=== PATIENT | female | born 1940 | race Caucasian/White ===

== ENCOUNTER 2024-03-23 13:49 | Inpatient (IN) | payer MEDICARE, OTHER ==
[~2024-03-23] VITALS: Ht 154.9 cm; Wt 64.9 kg
[2024-03-23] MEDS ORDERED: methylPREDNISolone SOD SUCC 125 MG/2ML VIAL ONE ×2 (14:11→22:00)
[2024-03-23] MEDS: methylPREDNISolone SOD SUCC 125 MG/2ML VIAL IV ONE (14:15)
[2024-03-23 14:44] VITALS: O2SAT 99
[2024-03-23] MEDS: IPRATROPIUM NEB FS 0.5 MG/2.5 ML AMPUL.NEB NEB ONE (14:44)
[2024-03-23] MEDS: ALBUTEROL FS 2.5 MG/3 ML VIAL.NEB CONTNEB ONE (14:44)
[2024-03-23 14:49] LABS: BASOPHILS % (AUTO) 0.8 % (0.0-2.0); EOSINOPHILS # (AUTO) 0.3 K/uL (0.0-0.7); EOSINOPHILS % (AUTO) 5.7 % (0.0-6.0); HEMATOCRIT 36 % (33-45); HEMOGLOBIN 11.7 g/dL (11.5-14.8); LYMPHOCYTES # (AUTO) 0.9 K/uL (0.8-4.8); LYMPHOCYTES % (AUTO) 18.5 % (20.0-44.0); MEAN CORPUSCULAR HEMOGLOBIN 29 PG (26.0-33.0); MEAN CORPUSCULAR HGB CONC 32 g/dl (31.0-36.0); MEAN CORPUSCULAR VOLUME 90 fL (82-100); MONOCYTES # (AUTO) 0.3 K/uL (0.1-1.30); NEUTROPHILS # (AUTO) 3.5 K/uL (1.8-8.9); PLATELET COUNT (AUTO) 220 K/uL (150-450); RED BLOOD CELL COUNT(AUTO) 4.05 MIL/uL (4.0-5.2)
[2024-03-23] MEDS ORDERED: ALBUTEROL FS 2.5 MG/3 ML VIAL.NEB ONE (14:50)
[2024-03-23] MEDS ORDERED: IPRATROPIUM NEB FS 0.5 MG/2.5 ML AMPUL.NEB ONE (14:51)
[2024-03-23] MEDS ORDERED: diphenhydrAMINE HCL 50 MG/ML VIAL ONE (15:00)
[2024-03-23] MEDS: diphenhydrAMINE HCL 50 MG/ML VIAL IV ONE (15:06)
[2024-03-23 15:12] LABS: CALCIUM, SERUM 8.3 mg/dL (8.5-10.1); CREATININE 0.7 mg/dL (0.6-1.3)
[2024-03-23 15:19] LABS: ALBUMIN 3.7 g/dL (3.4-5.0); BILIRUBIN,DIRECT 0.2 mg/dL (0.0-0.2); BILIRUBIN,TOTAL 0.5 mg/dL (0.2-1.0); TOTAL PROTEIN, SERUM 8.5 g/dL (6.4-8.2)
[2024-03-23 15:43] VITALS: O2SAT 100; O2SAT 99
[2024-03-23 16:37] LABS: NT-PRO BNP 813 pg/mL (0-125)
[2024-03-23] MEDS ORDERED: Z GUARD REMEDY 4 OZ OINT TP PRN (18:00)
[2024-03-23] MEDS ORDERED: ONDANSETRON HCL/PF 4 MG/2 ML VIAL IVP PRN (18:00)
[2024-03-23] MEDS ORDERED: ZOLPIDEM TARTRATE 5 MG TABLET PO PRN (18:00)
[2024-03-23] MEDS ORDERED: MAGNESIUM HYDROXIDE 30 ML UDC PO PRN (18:00)
[2024-03-23] MEDS ORDERED: ACETAMINOPHEN 325 MG TABLET PO PRN (18:00)
[2024-03-23] MEDS ORDERED: MAG HYDROX/AL HYDROX/SIMETH 30 ML UDC PO PRN (18:00)
[2024-03-23] MEDS ORDERED: ALBU18HF2 IH (18:30)
[2024-03-23] MEDS ORDERED: LEVOFLOXACIN (250MG) 250 MG TABLET ONE (20:59)
[2024-03-23] MEDS: LEVOFLOXACIN (250MG) 250 MG TABLET PO SCH (21:01)
[2024-03-23] MEDS: methylPREDNISolone SOD SUCC 40 MG/ML VIAL IV SCH (22:09)
[2024-03-23 22:56] VITALS: BP 133/88; TEMP 97.7; O2SAT 98
[2024-03-23 23:50] VITALS: BP 133/88; TEMP 97.7; O2SAT 99
[2024-03-24] VITALS (8 sets, daily range): BP systolic 141–160; BP diastolic 70–82; TEMP 97.7–97.9; O2SAT 92–100
[2024-03-24] MEDS: HYDROCODONE/APAP 5/325MG TABLET PO PRN (00:14)
[2024-03-24] MEDS: IPRATROPIUM NEB FS 0.5 MG/2.5 ML AMPUL.NEB NEB PRN (02:27)
[2024-03-24] MEDS: ALBUTEROL FS 2.5 MG/0.5 ML VIAL.NEB NEB PRN (02:27)
[2024-03-24 07:26] LABS: BASOPHILS % (AUTO) 0.1 % (0.0-2.0); HEMATOCRIT 32 % (33-45); HEMOGLOBIN 10.5 g/dL (11.5-14.8); LYMPHOCYTES # (AUTO) 0.2 K/uL (0.8-4.8); LYMPHOCYTES % (AUTO) 7.9 % (20.0-44.0); MEAN CORPUSCULAR HEMOGLOBIN 29 PG (26.0-33.0); MEAN CORPUSCULAR HGB CONC 33 g/dl (31.0-36.0); MEAN CORPUSCULAR VOLUME 89 fL (82-100); MONOCYTES % (AUTO) 1.3 % (2.0-12.0); NEUTROPHILS # (AUTO) 2.7 K/uL (1.8-8.9); NEUTROPHILS % (AUTO) 90.7 % (43.0-81.0); PLATELET COUNT (AUTO) 183 K/uL (150-450); RED BLOOD CELL COUNT(AUTO) 3.59 MIL/uL (4.0-5.2); RED CELL DISTRIBUTION WIDTH 14.5 % (11.5-15.0)
[2024-03-24 07:42] LABS: THYROID STIMULATING HORMONE 0.8 uIU/mL (0.358-3.74)
[2024-03-24 08:31] LABS: CALCIUM, SERUM 8.4 mg/dL (8.5-10.1); CREATININE 0.8 mg/dL (0.6-1.3); MAGNESIUM 2.3 mg/dL (1.8-2.4); PHOSPHORUS 3.9 mg/dL (2.5-4.9); POTASSIUM 4.2 mmol/L (3.5-5.1)
[2024-03-24] MEDS: ENOXAPARIN SODIUM 40 MG/0.4 ML DISP.SYRIN SQ SCH (08:45)
[2024-03-24] MEDS: PANTOPRAZOLE 40 MG TABLET.DR PO SCH (08:45)
[2024-03-24] MEDS: THERAHONEY GEL 1.5 OZ TUBE TP SCH (13:33)
[2024-03-24] MEDS: IPRATROPIUM NEB FS 0.5 MG/2.5 ML AMPUL.NEB NEB SCH (14:32)
[2024-03-24] MEDS: ALBUTEROL FS 2.5 MG/0.5 ML VIAL.NEB NEB SCH (14:33)
[2024-03-25] VITALS (11 sets, daily range): BP systolic 124–148; BP diastolic 70–83; TEMP 97.5–98.2; O2SAT 93–99
[2024-03-25] MEDS: methylPREDNISolone SOD SUCC 40 MG/ML VIAL IV SCH (09:14)
[2024-03-25] MEDS: LIDOCAINE 2%-EPI 1:100,000 30 ML VIAL TP ONE (13:46)
[2024-03-25] MEDS: FLUTICASONE PROPIONATE 16 GM BOTTLE NS SCH (17:34)
[2024-03-26 01:21] VITALS: O2SAT 94
[2024-03-26 01:35] VITALS: O2SAT 99
[2024-03-26 08:00] VITALS: BP 134/81; TEMP 97.8; O2SAT 96
[2024-03-26 08:01] VITALS: O2SAT 96
[2024-03-26 08:16] VITALS: O2SAT 99
== END 2024-03-26 13:00 | disposition home or self-care (01) | DRG 202 ==
LOC: ER 13:55 → MEDSG1 19:35 → MED 19:37 → MEDSG1 19:38 → MED 20:58
PROVIDERS: ADMIT Nurse Practitioner Acute Care; ATTEND Nurse Practitioner Acute Care
DX: J45.901 Unspecified asthma with (acute) exacerbation (principal); T81.31XA Disruption of external operation (surgical) wound, not elsewhere classified, initial encounter; I10 Essential (primary) hypertension; M19.90 Unspecified osteoarthritis, unspecified site; R73.9 Hyperglycemia, unspecified; J01.00 Acute maxillary sinusitis, unspecified; Y83.8 Other surgical procedures as the cause of abnormal reaction of the patient, or of later complication, without mention of misadventure at the time of the procedure; Y92.009 Unspecified place in unspecified non-institutional (private) residence as the place of occurrence of the external cause
CPT/HCPCS: 36415; 70220-TC; 71045-TC; 80048-TC; 80076-TC; 83735-TC; 83880; 84100-TC; 84443-TC; 84484-TC; 85025-TC; 93970-TC; 94760-TC; 94799-TC; 97110-TC; 97116-TC; 97530-TC; A6253; A6403; G0378; J1200; J1650; J2919; J3490